=== PATIENT | female | born 2000 | race Caucasian/White ===

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

== ENCOUNTER 2019-07-18 14:37 | Emergency (ER) | payer OTHER ==
[~2019-07-18] VITALS: Ht 154.9 cm; Wt 66.2 kg
[2019-07-18 15:06] VITALS: Ht 154.9 cm; Wt 66.2 kg
[2019-07-18 16:41] VITALS: BP 103/66
== END 2019-07-18 16:41 | disposition home or self-care (01) ==
LOC: ED 14:37
DX: S39.012A Strain of muscle, fascia and tendon of lower back, initial encounter (principal); S46.911A Strain of unspecified muscle, fascia and tendon at shoulder and upper arm level, right arm, initial encounter; X58.XXXA Exposure to other specified factors, initial encounter; Y93.89 Activity, other specified; Y92.89 Other specified places as the place of occurrence of the external cause; Y99.8 Other external cause status

== ENCOUNTER 2019-11-25 19:53 | Emergency (ER) | payer OTHER ==
[~2019-11-25] VITALS: Ht 157.5 cm; Wt 59.0 kg
[2019-11-25 20:00] VITALS: Ht 157.5 cm; Wt 59.0 kg
[2019-11-25 21:50] VITALS: BP 126/78
== END 2019-11-25 21:50 | disposition home or self-care (01) ==
LOC: ED 19:53
DX: S06.0X0A Concussion without loss of consciousness, initial encounter (principal); S01.81XA Laceration without foreign body of other part of head, initial encounter; W01.0XXA Fall on same level from slipping, tripping and stumbling without subsequent striking against object, initial encounter; Y93.89 Activity, other specified; Y92.89 Other specified places as the place of occurrence of the external cause; Y99.8 Other external cause status
CPT/HCPCS: 90715